=== PATIENT | male | born 1980 | race African-American/Black ===

== ENCOUNTER 2023-08-31 15:32 | Emergency (ER) | payer MEDICAID ==
[~2023-08-31] VITALS: Ht 182.9 cm; Wt 80.0 kg
[2023-08-31 15:49] VITALS: BP 126/78; PULSE 94; RESP 18; TEMP 98.3; O2SAT 97
== END 2023-08-31 20:08 | disposition left against medical advice (07) ==
LOC: ER 15:36
DX: M79.10 Myalgia, unspecified site (principal); F31.9 Bipolar disorder, unspecified
CPT/HCPCS: 99283

== ENCOUNTER 2024-02-25 12:50 | Emergency (ER) | payer MEDICAID ==
[~2024-02-25] VITALS: Ht 180.3 cm; Wt 80.0 kg
[2024-02-25 12:51] VITALS: BP 120/80; PULSE 87; RESP 18; TEMP 98.6; O2SAT 98
== END 2024-02-25 16:13 | disposition left against medical advice (07) ==
LOC: ER 12:50
DX: M54.9 Dorsalgia, unspecified (principal); Z53.21 Procedure and treatment not carried out due to patient leaving prior to being seen by health care provider
CPT/HCPCS: 99281